=== PATIENT | female | born 1980 | race Caucasian/White ===

== ENCOUNTER 2017-12-08 09:09 | Outpatient (CLI) | payer BC ==
[2017-12-08 10:37] LABS: Hemoglobin 14.8 g/dL (12.0-16.0); Mean Corpuscular HGB CONC 33.9 g/dL (32.0-36.0); Mean Corpuscular Hemoglobin 32.6 pg (27.0-31.0); Mean Platelet Volume 6.7 fL (7.4-10.4); Platelet Count 303 thou/uL (130-400); Red Blood Cell (RBC) Count 4.54 mill/uL (4.20-5.40); White Blood Cell (WBC) Count 6.2 thou/uL (4.8-10.8)
[2017-12-08 10:44] LABS: BHCG - Serum Negative (NEGATIVE); Pregs Control Bar Appear? YES (CONTROL BAR)
[2017-12-08 10:45] LABS: Pregs Control Background? CLEAR/WHITE (CLR/WHITE)
== END 2017-12-08 09:10 | disposition home or self-care (01) ==
LOC: LABBT 09:09
PROVIDERS: ATTEND Obstetrics & Gynecology
DX: Z01.812 Encounter for preprocedural laboratory examination (principal); R19.09 Other intra-abdominal and pelvic swelling, mass and lump
CPT/HCPCS: 84703; 85027; 86850; 86900; 86901

== ENCOUNTER → 2017-12-10 | Day surgery (SDC) | payer BC ==
[2017-12-08 09:38] VITALS: BMI 21.7
--- NOTE | 2017-12-09 20:04 | HP ---
DATE OF OPERATION: 12/10/2017 REASON FOR OPERATION: Complex right adnexal mass 5 cm consistent with mature cystic teratoma. SCHEDULED PROCEDURE: Laparoscopic partial right oophorectomy with da Jose Maria robot. HISTORY OF PRESENT ILLNESS: Ms. Justice is a 37-year-old 1, para 1, who has a copper IUD for c ontraception. She was seen recently for a vaginal discharge and noted to have an adnexal mass. Ultr asound revealed complex hyperechoic right adnexal mass consistent with mature cystic teratoma. OBSTETRIC AND GYNECOLOGY HISTORY: x1, history of HSV. PAST MEDICAL HISTORY: None. PAST SURGICAL HISTORY: None. ALLERGIES: BACTRIM. MEDICATIONS: Valacyclovir. SOCIAL HISTORY: Denies tobacco, alcohol, or IV drug abuse. FAMILY HISTORY: Noncontributory. REVIEW OF SYSTEMS: Noncontributory. PHYSICAL EXAMINATION: VITAL SIGNS: Female, 5 foot 1, 115, BMI 22, blood pressure 120/78. HEENT: Within normal limits. LUNGS: Clear to auscultation bilaterally. HEART: Regular rhythm. BREASTS: No masses bilaterally. ABDOMEN: Soft, nontender, no rebound, no guarding. PELVIC: Vulva without lesions. Vagina without discharge. Cervix parous, uterus anteverted, deviate d left adnexa. A 5 cm left adnexal mass. EXTREMITIES: Without clubbing, cyanosis or edema. LABORATORY DATA: Ultrasound is noted. IMPRESSION: Complex right adnexal mass consistent with mature cystic teratoma. PLAN: Partial oophorectomy with ovarian preservation on the right with da Jose Maria robot assist. The p atient understands risks and benefits of procedure including bleeding, infection, damage to organs, c ontralateral 10% risk of mature cystic teratoma as well as ipsilateral recurrence. We will administe r appropriate antibiotic and DVT prophylaxis.
[~2017-12-10] MED LIST: Bupivacaine HCl 0.5%/Epinephrine 1:200,000/PF 30 ml Vial ONE; CEFAZOLIN/Water 2 GM/20 ML SYRINGE ONE; Dexamethasone 20 MG/5 ML VIAL ONE; Fentanyl 100 MCG/2 ML VIAL ONE; Glycopyrrolate 0.2 MG/ML 5 ML SYRINGE ONE; Ketorolac Tromethamine 30 MG/ML VIAL ONE; Lidocaine 1% PF 5 ML VIAL ONE; Meperidine HCl/PF 25 MG/ML VIAL ONE; Metoclopramide HCl 10 MG/2 ML VIAL ONE; Midazolam HCl 2 mg/2 ml Vial ONE; Ondansetron HCl/PF 4 MG/2 ML Vial ONE; PROPOFOL 200 MG/20 ML VIAL ONE; diphenhydrAMINE 50 MG/ML VIAL ONE
--- NOTE | 2017-12-10 10:47 | OP ---
DATE OF PROCEDURE: 12/10/2017 PREOPERATIVE DIAGNOSIS: Right mature cystic teratoma. POSTOPERATIVE DIAGNOSIS: Right mature cystic teratoma. PROCEDURE: Laparoscopic partial right oophorectomy for mature cystic teratoma with a da Jose Maria robot assist. SURGEON: Dwain Martins M.D. SENIOR DIRECTOR INSIGHT: Guillermo Sorenson M.D. ESTIMATED BLOOD LOSS: Less than 30 mL. COMPLICATIONS: None. SPECIMENS REMOVED: Right mature cystic teratoma. DRAINS: Sorenson to gravity. MEDICATIONS: Two grams Ancef preincision. DVT PROPHYLAXIS: SCDs. OPERATIVE FINDINGS: 1. Normal appearing uterus and left tube and ovary. 2. Normal appearing right tube. 3. A 4-5 cm right ovarian mature cystic teratoma. 4. Hemostasis at the end of the procedure with correct counts. DISPOSITION: To the recovery room in good condition. DESCRIPTION OF OPERATIVE PROCEDURE: After obtaining proper informed consent, the patient was taken t o the operating room. General endotracheal anesthesia achieved without difficulty. The patient prep ped and draped in dorsal lithotomy position in Patrice stirrups. A sponge stick was placed in the vagi na for manipulation of the uterus secondary to the patient's copper IUD. A Sorenson catheter was placed with clear urine noted. Fish Housekeeper changed his gloves and turned his attention to the abdominal porti on of procedure, 10 mL of Marcaine injected at the superior aspect of the umbilicus utilizing a creas e in the skin an approximately 2 cm incision was made there and carried down with blunt dissection to the fascia. Freeze needle placed inside the abdominal cavity. Insufflation carried out with carbon dioxide to a max pressure of 15, volume approximately 3.5 liters. A 12 mm noncutting trocar was ernesto morales and confirmation entry into the peritoneal cavity without trauma to the underlying viscera was no renee. Cut down on the fascia at the level of the 12 mm trocar was carried out until the fascial incis ion was approximately 2-2.5 cm wide. A small Jay 0 retractor was placed and the applied medical G elpoint placed at the level of the umbilicus with insufflation carried out. Right and left lateral d a Jose Maria 8 mm trocars were placed under direct visualization. The patient was placed in steep [place] position. Findings as noted in the operative findings were noted. Approximately 2-3 cm incis ion was made on the ovary on the antimesenteric side over the mass that was noted to be in the body o f the ovary. Dissection was carried down to the level of the cyst wall which was easily identified a nd the dermoid was dissected both sharply and bluntly off of the stroma of the ovary using cautery to achieve hemostasis. A small hole in the dermoid occurred during the dissection with sebum and hair noted confirming the preoperative diagnosis of mature cystic teratoma. Once the entire dermoid was d issected free, it was placed in the cul-de-sac for retrieval. Suction irrigation carried out on the ovarian stroma and hemostasis achieved. A 10 mm specimen retrieval bag was placed in through the Gel point and the dermoid was placed inside this bag. It was closed and pulled up against the Gelpoint. Copious suction irrigation was carried out in the pelvis to remove any sebum or hair that had escape d with removal of the dermoid and this was carried out until clear. Inspection of all pedicles revea led them to be dry. The da Jose Maria robot was undocked. Monopolar scissors have been used in the right hand and bipolar fenestrated forceps in the left during the surgical procedure. The specimen was pu lled out through the umbilical Gelpoint trocar. All trocars removed and the abdomen desufflated of c arbon dioxide. The fascia identified at the level of the umbilicus. It was elevated with an [facility] on both ends and closed using an 0 Vicryl on a UR-6 needle in a running continuous manner. Good jimmy pproximation was noted. The skin was reapproximated x3 using 4-0 Monocryl subcuticular and Dermabond . Sponge stick was removed. Sorenson catheter removed. The patient awakened, extubated, and taken to recovery room in good condition.
--- NOTE | 2017-12-10 13:49 | DIS ---
DATE OF DISCHARGE: 12/10/2017 TIME OF SERVICE: 1320 HOSPITAL COURSE: The patient had a laparoscopic right ovarian partial oophorectomy this a.m. for a d ermoid. She had an area of bleeding from the umbilical port incision. It was seen by myself at appr oximately 11:45. A 4 x 4 was applied with Medipore tape over it for pressure. It was removed at 1:0 0 and noted then that there was a small amount of bleeding that had occurred; however, did not soak t hrough one 4 x 4 and appeared to be inactive at the time. A small amount of Kerlix gauze was then pl aced in the umbilicus and MediPort tape reapplied. The patient will be discharged home. She is to c all if it soaks through or starts bleeding actively. Otherwise, she can remove it in 24 hours. Sche duled followup at [facility] in 4 weeks.
== END ==
LOC: SDC 06:05
PROVIDERS: ATTEND Obstetrics & Gynecology
PROC: 0UB04ZZ Excision of Right Ovary, Percutaneous Endoscopic Approach (ICD-10-PCS; principal; 2017-12-10)
DX: D27.0 Benign neoplasm of right ovary (principal); Z88.1 Allergy status to other antibiotic agents; Z88.2 Allergy status to sulfonamides; Z79.899 Other long term (current) drug therapy
CPT/HCPCS: 88307; 96374; 96375; J0131; J0670; J1100; J1200; J1885; J2001; J2175; J2250; J2405; J2704; J2765; J3010